=== PATIENT | female | born 1955 | race Caucasian/White ===

== ENCOUNTER 2021-06-28 17:36 | Observation (INO) | payer BC, MEDICARE ==
[2021-06-28 18:08] LABS: #Basophils 0.1 10x3/uL (0.0-0.2); #Eosinphils 0.1 10x3/uL (0.0-0.5); #Monocytes 0.4 10x3/uL (0.0-1.1); #Neutrophils 1.8 10x3/uL (1.5-8.4); %Basophils 1.3 % (0.0-2.0); %Eosinophils 2.5 % (0.0-6.0); %Lymphocytes 42.5 % (18.0-47.0); %Neutrophils 44.4 % (40.0-75.0); Hemoglobin 13.1 g/dL (12.0-15.5); Mean Corpuscular HGB CONC 35.6 g/dL (32.0-36.0); Mean Corpuscular Hemoglobin 33.6 pg (27.0-33.0); Mean Corpuscular Volume 94.4 fl (81.6-98.3); Mean Platelet Volume 9.5 fl (7.4-10.4); Platelet Count 130 10x3/uL (150-450); RBC Distribution Width 13.9 % (11.5-14.5)
[2021-06-28 18:22] LABS: ALT (SGPT) 23 U/L (8-55); AST (SGOT) 26 U/L (5-34); Albumin 4.1 g/dL (3.4-4.8); Alkaline Phosphatase 130 U/L (40-110); Anion Gap 14 mmol/L (10-20); BUN (Urea Nitrogen) 23 mg/dL (9.8-20.1); Bilirubin, Total 0.3 mg/dL (0.2-1.2); Calc. Creatinine Clearance 0 mL/min (70-130); Calcium 9.1 mg/dL (7.8-10.44); Carbon Dioxide 21 mmol/L (23-31); Chloride 111 mmol/L (98-107); Glucose 159 mg/dL (80-115); Potassium 4.1 mmol/L (3.5-5.1); Protein, Total 7.1 g/dL (5.8-8.1); Sodium 142 mmol/L (136-145)
[2021-06-28] MEDS ORDERED: Ondansetron PF 4 MG/2 ML Vial ONE (18:40)
[2021-06-28] MEDS ORDERED: diphenhydrAMINE 50 MG/ML VIAL ONE (18:48)
[2021-06-28] MEDS ORDERED: Prochlorperazine 10 MG/2 ML VIAL ONE (18:48)
[2021-06-28] MEDS ORDERED: Lorazepam 2 MG/ML VIAL ONE (19:15)
[2021-06-28] MEDS ORDERED: Aspirin Chewable 81 MG TAB ONE (20:29)
[2021-06-28 22:12] LABS: SARS-CoV-2 NAA Rapid Test Not Detected (NotDetected)
[2021-06-29 02:35] VITALS: BMI 31.8
[2021-06-29] MEDS ORDERED: Lactated Ringer's 1,000 ML IV SCH (03:45)
[2021-06-29] MEDS ORDERED: Metoclopramide HCl 10 MG/2 ML VIAL IVP SCH (04:00)
[2021-06-29] MEDS ORDERED: Ketorolac Tromethamine 30 MG/ML VIAL IVP SCH ×2 (04:00→21:00)
[2021-06-29] MEDS ORDERED: Vancomycin HCl 1.75 GM in Sodium Chloride 0.9% 500 ML IVPB SCH (04:15)
[2021-06-29 04:48] LABS: #Monocytes 0.3 10x3/uL (0.0-1.1); #Neutrophils 3.6 10x3/uL (1.5-8.4); %Basophils 0.6 % (0.0-2.0); %Eosinophils 0.2 % (0.0-6.0); %Lymphocytes 21.7 % (18.0-47.0); %Monocytes 6.5 % (0.0-10.0); %Neutrophils 70.6 % (40.0-75.0); Hemoglobin 12.3 g/dL (12.0-15.5); Mean Corpuscular HGB CONC 34.9 g/dL (32.0-36.0); Mean Corpuscular Hemoglobin 33.1 pg (27.0-33.0); Mean Corpuscular Volume 94.6 fl (81.6-98.3); Mean Platelet Volume 9.9 fl (7.4-10.4); Platelet Count 117 10x3/uL (150-450); RBC Distribution Width 13.9 % (11.5-14.5); Red Blood Cell (RBC) Count 3.72 10x6/uL (3.90-5.03); White Blood Cell (WBC) Count 5.1 10x3/uL (3.5-10.5)
[2021-06-29] MEDS: cefTRIAXone\\ROCEPHIN 2 GM in Sodium Chloride 0.9% 100 ML IVPB SCH ×2 (04:50→16:15)
[2021-06-29 04:58] LABS: Anion Gap 14 mmol/L (10-20); BUN (Urea Nitrogen) 21 mg/dL (9.8-20.1); Calc. Creatinine Clearance 49 mL/min (70-130); Calcium 9.1 mg/dL (7.8-10.44); Carbon Dioxide 21 mmol/L (23-31); Chloride 110 mmol/L (98-107); Glucose 167 mg/dL (80-115); Magnesium 1.3 mg/dL (1.6-2.6); Potassium 3.9 mmol/L (3.5-5.1); Sodium 141 mmol/L (136-145)
[2021-06-29] MEDS ORDERED: Letrozole 2.5 MG TAB PO SCH (09:00)
[2021-06-29] MEDS ORDERED: Enoxaparin Sodium 40 MG/0.4 ML SYRINGE SC SCH ×2 (09:00→21:00)
[2021-06-29] MEDS ORDERED: Atorvastatin Calcium 10 MG TAB PO SCH (09:00)
[2021-06-29] MEDS ORDERED: ALPRAZolam 0.5 MG TAB PO SCH (09:00)
[2021-06-29] MEDS ORDERED: LIRAGLUTIDE SQ SCH (09:00)
[2021-06-29] MEDS: Multivitamin W/ Minerals 1 TAB PO SCH (09:04)
[2021-06-29] MEDS: Metoprolol Tartrate 25 MG TAB PO SCH ×2 (09:05→20:52)
[2021-06-29] MEDS ORDERED: Sodium Bicarbonate 2.5 MEQ/5 ML VIAL ONE (10:23)
[2021-06-29] MEDS ORDERED: Lidocaine 1% PF 5 ML VIAL ONE (10:24)
[2021-06-29] MEDS: Aspirin 81 mg Enteric Coated Tablet PO SCH (13:26)
[2021-06-29] MEDS ORDERED: Vancomycin HCl 1.25 GM in Sodium Chloride 0.9% 250 ML 300 ML IVPB SCH (16:00)
[2021-06-29] MEDS ORDERED: Sodium Chloride 0.9% 100 ML ONE (16:11)
[2021-06-29] MEDS ORDERED: Atorvastatin Calcium 40 MG TAB PO SCH (21:00)
[2021-06-30 04:53] LABS: Cardiac Risk 3.2 (Less than 4.5)
[2021-06-30] MEDS ORDERED: Ketorolac Tromethamine 30 MG/ML VIAL IVP SCH (09:00)
[2021-06-30] MEDS ORDERED: Letrozole 2.5 MG TAB PO SCH (09:00)
[2021-06-30] MEDS ORDERED: Vit A,C & E/Lutein/Minerals Tablet PO SCH ×2 (09:00)
[2021-06-30] MEDS ORDERED: Metoclopramide HCl 10 MG/2 ML VIAL IVP SCH (09:00)
[2021-06-30] MEDS: Metoprolol Tartrate 25 MG TAB PO SCH (10:07)
[2021-06-30] MEDS: Multivitamin W/ Minerals 1 TAB PO SCH (10:08)
[2021-06-30] MEDS: Aspirin 81 mg Enteric Coated Tablet PO SCH (11:11)
[2021-06-30] MEDS ORDERED: Amlodipine 5 MG TAB PO SCH (12:30)
[2021-06-30 14:16] VITALS: BP 175/88; TEMP 98.1
== END 2021-06-30 14:00 | disposition home or self-care (01) ==
LOC: CSHERS 17:36 → CSHTELE 23:34 → INTOOBSV 06-29 00:12 → CSHTELE 06-29 00:12
PROVIDERS: ADMIT Family Medicine; ATTEND Internal Medicine
DX: G43.109 Migraine with aura, not intractable, without status migrainosus (principal); R47.01 Aphasia; E78.5 Hyperlipidemia, unspecified; E11.22 Type 2 diabetes mellitus with diabetic chronic kidney disease; I12.9 Hypertensive chronic kidney disease with stage 1 through stage 4 chronic kidney disease, or unspecified chronic kidney disease; N18.32 Chronic kidney disease, stage 3b; Z85.3 Personal history of malignant neoplasm of breast; Z79.899 Other long term (current) drug therapy; Z20.822 Contact with and (suspected) exposure to COVID-19
CPT/HCPCS: 36415; 36416; 70450; 70551; 80048; 80053; 80061; 83735; 84484; 85025; 85652; 87040; 93005; 93306; 96374; 96375; 96376; G0378; J0696; J0780; J1200; J1885; J2060; J2405; J2765; J3370; J3490; J7030; J7120; U0002